=== PATIENT | male | born 1975 | race Caucasian/White ===

== ENCOUNTER 2023-11-12 00:01 | Emergency (ER) | payer BC ==
[2023-11-12] MEDS: Lidocaine 1% 5 ML VIAL INJECT ONE (00:53)
== END 2023-11-12 01:34 | disposition home or self-care (01) ==
LOC: JP.ED 00:01
DX: S92.512B Displaced fracture of proximal phalanx of left lesser toe(s), initial encounter for open fracture (principal); F17.210 Nicotine dependence, cigarettes, uncomplicated; W22.8XXA Striking against or struck by other objects, initial encounter
CPT/HCPCS: 28515; 73660-26-T2; 73660-T2; 99283; 99283-25